=== PATIENT | female | born 1955 | race Caucasian/White ===

== ENCOUNTER → 2017-06-29 | Day surgery (SDC) | payer OTHER ==
[~2017-06-29] MED LIST: CALC117719 PO; HYDR-4003 PO; LEVO137T24 PO; ONDA4TAB6 PO
[2017-06-29] MEDS: Thyrotropin 0.9 mg/mL Inj IM SCH (09:25)
[2017-06-30] MEDS: Thyrotropin 0.9 mg/mL Inj IM SCH (09:27)
== END | disposition home or self-care (01) ==
LOC: SOUO 00:14
PROVIDERS: ATTEND Otolaryngology Otolaryngology/Facial Plastic Surgery
DX: C73 Malignant neoplasm of thyroid gland (principal)
CPT/HCPCS: 96372; J3240

== ENCOUNTER → 2017-06-30 | Day surgery (SDC) | payer OTHER ==
[~2017-06-30] MED LIST changes: +Thyrotropin 0.9 mg/mL Inj IM ONE
== END | disposition home or self-care (01) ==
LOC: SNM 00:13
PROVIDERS: ATTEND Otolaryngology Otolaryngology/Facial Plastic Surgery
DX: C73 Malignant neoplasm of thyroid gland (principal)